=== PATIENT | male | born 1950 | race Caucasian/White ===

== ENCOUNTER 2016-06-02 16:05 | Emergency (ER) | payer MEDICARE ==
[2016-06-02 16:22] VITALS: BP 160/69
--- NOTE | 2016-06-03 17:31 | ED ---
Skin Complaint - HPI Summary HPI Summary: Patient arrives to ED with CC of left index finger bleeding from a torn hang nail which has been present for about 3 hours and is concerned that it will not stop. patient is taking a baby aspirin daily. Denies any injuries. He has been trying to apply pressure to the area, but it has not been constant pressure. He has never had anything like this before. Denies health problems. He denies feeling light headed or dizziness. denies melena, or dark stools. - History of Current Complaint Chief Complaint: EDLacSutureRecheck Stated Complaint: RT POINTER FINGER LAC Hx Obtained From: Patient Onset/Duration: Started Hours Ago Skin Exposure Onset/Duration: Hours Ago Timing: Constant Onset Severity: Moderate Current Severity: Moderate Pain Intensity: 0 Pain Scale Used: 0-10 Numeric Skin Location: Hand Aggravating Symptom(s): Nothing Alleviating Symptom(s): Nothing Associated Signs & Symptoms: Negative Related History: Trauma - Allergy/Home Medications Allergies/Adverse Reactions: Allergies Allergy/AdvReac Type Severity Reaction Status Date / Time Penicillins Allergy Unknown Unknown Verified 06/03/14 16:39 Reaction Details PMH/Surg Hx/FS Hx/Imm Hx Previously Healthy: Yes Endocrine/Hematology History: Denies: Hx Diabetes, Hx Thyroid Disease Cardiovascular History: Reports: Hx Hypertension Respiratory History: Denies: Hx Asthma, Hx Chronic Obstructive Pulmonary Disease (COPD) GI History: Denies: Hx Ulcer Infectious Disease History: No Infectious Disease History: Denies: Hx Hepatitis, Hx Human Immunodeficiency Virus (HIV), Traveled Outside the [place] in Last 30 Days - Social History Occupation: Retired Lives: With Family Alcohol Use: Weekly Alcohol Amount: 1 week Hx Substance Use: No Substance Use Type: Reports: None Hx Tobacco Use: No Smoking Status (MU): Former Smoker Do You Chew or Dip Tobacco: No Review of Systems Constitutional: Negative Cardiovascular: Negative Respiratory: Negative Genitourinary: Negative Positive: no symptoms reported, see HPI Musculoskeletal: Negative Positive: Other Neurological: Negative Psychological: Normal All Other Systems Reviewed And Are Negative: Yes Physical Exam Triage Information Reviewed: Yes Vital Signs On Initial Exam: Initial Vitals Temp Pulse Resp BP Pulse Ox 97.9 F 79 18 160/69 100 06/02/16 16:19 06/02/16 16:19 06/02/16 16:19 06/02/16 16:19 06/02/16 16:19 Completion Of Physical Exam Limited Due To: Dementia Appearance: Positive: Well-Appearing, Well-Nourished Skin: Positive: Warm, Skin Color Reflects Adequate Perfusion, Other - small 1cm skin avulsion superficial, bleeding for 3 hours. Head/Face: Positive: Normal Head/Face Inspection Eyes: Positive: Normal, SHERI, Conjunctiva Clear Neck: Positive: Supple, Nontender Respiratory/Lung Sounds: Positive: Clear to Auscultation, Breath Sounds Present Cardiovascular: Positive: Normal Musculoskeletal: Positive: Normal, Strength/ROM Intact Neurological: Positive: Normal Psychiatric: Positive: Normal AVPU Assessment: Alert Diagnostics - Vital Signs Vital Signs Temp Pulse Resp BP Pulse Ox 06/02/16 16:40 97.6 F 78 18 06/02/16 16:19 97.9 F 79 18 160/69 100 - Laboratory Lab Statement: Any lab studies that have been ordered have been reviewed, and results considered in the medical decision making process. Course/Dx - Course Course Of Treatment: patient was in triage room during physical exam and treatment. adhesive glue applied to finger. bleeding slowly bubbled the glue and began to slowly bleed again. Improved with glue. Patient held for 20 mintues. improved and bleeding now stopped. occlusive dressing applied with compression wrap. 20 minutes later, no bleeding was identified. patient discharged home with return precautions. patient agrees with plan. - Differential Diagnoses - Skin Complaint Differential Diagnoses: Other - laceration, avulsion, abrasion, blood clot, blood thinning - Diagnoses Provider Diagnoses: abrasion Discharge - Discharge Plan Condition: Stable Disposition: HOME Patient Education Materials: Abrasion (ED) Referrals: Ortega Finley MD [Primary Care Provider] - Additional Instructions: If bleeding persists, come back to ED. Do not take any blood thinners today or tomorrow.
== END 2016-06-02 16:40 | disposition home or self-care (01) ==
LOC: ED 16:05
DX: S60.411A Abrasion of left index finger, initial encounter (principal); X58.XXXA Exposure to other specified factors, initial encounter; Y93.9 Activity, unspecified; Y92.9 Unspecified place or not applicable; Y99.9 Unspecified external cause status; Z88.0 Allergy status to penicillin
CPT/HCPCS: 99281

== ENCOUNTER 2016-07-18 20:20 | Emergency (ER) | payer MEDICARE ==
[2016-07-18] MEDS ORDERED: NS 0.9% 1000 ML* 1,000 ML IV SCH (22:00)
[2016-07-18 22:46] LABS: Hematocrit 38 % (42-52); Hemoglobin 13.4 g/dl (14.0-18.0); Mean Corpuscular HGB Conc 35 g/dl (31-36); Mean Corpuscular Hemoglobin 30 pg (27-31); Mean Corpuscular Volume 85 fL (80-94); Mean Platelet Volume 10 um3 (7.4-10.4); Red Blood Count 4.54 10^6/ul (4.0-5.4); Red Cell Distribution Width 13 % (10.5-15); White Blood Count 6.7 10^3/ul (3.5-10.8)
[2016-07-18 23:00] LABS: BUN/Creatinine Ratio 27.4 (8-20); C Reactive Protein 1.08 mg/L (< 5.00); Calcium 9.2 mg/dL (8.6-10.3); EGFR African American 101.7 (>60); EGFR Non-African American 79.1 (>60); Globulin 2.7 g/dL (2-4); Total Bilirubin 0.5 mg/dL (0.2-1.0); Total Protein 6.7 g/dL (6.4-8.9)
--- NOTE | 2016-07-18 23:12 | ED ---
Rio Blount Anna, scribed for Ruben Montez MD on 07/18/16 at 2157 . GI/ HPI - HPI Summary HPI Summary: Patient is a 66 y/o male coming to [facility] presenting with the sudden onset of intermittent melena that began at 0700 this morning. The patient is s/p colonoscopy on 07/16/2016, where a 9 mm polyp was removed. Denies bloating, abd pain, lightheadedness. This morning was his first BM in the last two days. Over the course of the day, he had several BM. The first was long, thin, black/brown tubes. Then he had a BM of brown/black diarrhea. Next he had a black BM with tails on the feces. He had another bowl of diarrhea. He then had a normal consistency movement with brown/black color. This evening, he had a wine red BM. He ate normally today and yesterday. He is very thirsty right now. He spoke with Dr. Mayorga, who said it was expected that he would bleed following the colonoscopy, but it usually bleeds the 4th-5th day following the surgery and is expected to resolve on its own. He takes Crestor 2.5 mg 2x/week. He takes Hydrochlorothiazide and Norvasc daily. Patient medications have been reviewed this visit. - History of Current Complaint Chief Complaint: EDGIBleed Time Seen by Provider: 07/18/16 21:55 Stated Complaint: RECTAL BLEEDING Hx Obtained From: Patient Onset/Duration: Started Hours Ago, Still Present Timing: Lasting Hours Pain Intensity: 0 - /10 - Allergy/Home Medications Allergies/Adverse Reactions: Allergies Allergy/AdvReac Type Severity Reaction Status Date / Time Penicillins Allergy Unknown Unknown Verified 07/18/16 21:52 Reaction Details PMH/Surg Hx/FS Hx/Imm Hx Endocrine/Hematology History: Denies: Hx Diabetes, Hx Thyroid Disease Cardiovascular History: Reports: Hx Hypertension Respiratory History: Denies: Hx Asthma, Hx Chronic Obstructive Pulmonary Disease (COPD) GI History: Denies: Hx Ulcer Infectious Disease History: No Infectious Disease History: Denies: Hx Hepatitis, Hx Human Immunodeficiency Virus (HIV), Traveled Outside the [place] in Last 30 Days - Family History Known Family History: Positive: Other - Hx Alzheimer's in mother Negative: Cardiac Disease, Hypertension, Diabetes - Social History Alcohol Use: Weekly Alcohol Amount: 1 week Hx Substance Use: No Substance Use Type: Reports: None Hx Tobacco Use: No Smoking Status (MU): Former Smoker Review of Systems Constitutional: Other - thirsty Gastrointestinal: Other - hematochezia Positive: Diarrhea. Negative: Abdominal Pain Genitourinary: Other - melena Neurological: Other - Denies lightheadedness All Other Systems Reviewed And Are Negative: Yes Physical Exam - Summary Physical Exam Summary: Stool exam: bright red blood Triage Information Reviewed: Yes Vital Signs On Initial Exam: Initial Vitals Temp Pulse Resp BP Pulse Ox 99.0 F 98 20 178/78 100 07/18/16 20:20 07/18/16 20:20 07/18/16 20:20 07/18/16 20:20 07/18/16 20:20 Vital Signs Reviewed: Yes Appearance: Positive: Well-Appearing, No Pain Distress Skin: Positive: Warm, Skin Color Reflects Adequate Perfusion, Dry Head/Face: Positive: Normal Head/Face Inspection Eyes: Positive: EOMI, SHERI ENT: Positive: Normal ENT inspection Neck: Positive: Supple, Nontender Respiratory/Lung Sounds: Positive: Clear to Auscultation, Breath Sounds Present Cardiovascular: Positive: RRR Abdomen Description: Positive: Nontender, Soft Bowel Sounds: Positive: Present Musculoskeletal: Positive: Normal, Strength/ROM Intact Neurological: Positive: Normal, Sensory/Motor Intact, Alert, Oriented to Person Place, Time Psychiatric: Positive: Affect/Mood Appropriate Diagnostics - Vital Signs Vital Signs Temp Pulse Resp BP Pulse Ox 07/18/16 21:51 98.5 F 94 18 164/79 96 07/18/16 20:20 99.0 F 98 20 178/78 100 - Laboratory Lab Results: Lab Results 07/18/16 07/18/16 07/18/16 Range/Units 22:35 22:35 22:35 WBC 6.7 (3.5-10.8) 10^3/ul RBC 4.54 (4.0-5.4) 10^6/ul Hgb 13.4 L (14.0-18.0) g/dl Hct 38 L (42-52) % MCV 85 (80-94) fL MCH 30 (27-31) pg MCHC 35 (31-36) g/dl RDW 13 (10.5-15) % Plt Count 159 (150-450) 10^3/ul MPV 10 (7.4-10.4) um3 Neut % (Auto) 73.5 (38-83) % Lymph % (Auto) 17.3 L (25-47) % Toole % (Auto) 5.2 (1-9) % Eos % (Auto) 3.4 (0-6) % Baso % (Auto) 0.6 (0-2) % Absolute Neuts (auto) 5.0 (1.5-7.7) 10^3/ul Absolute Lymphs (auto) 1.2 (1.0-4.8) 10^3/ul Absolute Monos (auto) 0.4 (0-0.8) 10^3/ul Absolute Eos (auto) 0.2 (0-0.6) 10^3/ul Absolute Basos (auto) 0 (0-0.2) 10^3/ul Absolute Nucleated RBC 0 10^3/ul Nucleated RBC % 0 INR (Anticoag Therapy) 0.94 (0.89-1.11) APTT 30.8 (26.0-36.3) seconds Sodium 136 (133-145) mmol/L Potassium 3.0 L (3.5-5.0) mmol/L Chloride 101 (101-111) mmol/L Carbon Dioxide 27 (22-32) mmol/L Anion Gap 8 (2-11) mmol/L BUN 26 H (6-24) mg/dL Creatinine 0.95 (0.67-1.17) mg/dL Est GFR ( Amer) 101.7 (>60) Est GFR (Non-Af Amer) 79.1 (>60) BUN/Creatinine Ratio 27.4 H (8-20) Glucose 184 H (70-100) mg/dL Calcium 9.2 (8.6-10.3) mg/dL Total Bilirubin 0.50 (0.2-1.0) mg/dL AST 20 (13-39) U/L ALT 25 (7-52) U/L Alkaline Phosphatase 59 (34-104) U/L C-Reactive Protein 1.08 (< 5.00) mg/L Total Protein 6.7 (6.4-8.9) g/dL Albumin 4.0 (3.2-5.2) g/dL Globulin 2.7 (2-4) g/dL Albumin/Globulin Ratio 1.5 (1-3) Result Diagrams: 07/18/16 22:35 07/18/16 22:35 Lab Statement: Any lab studies that have been ordered have been reviewed, and results considered in the medical decision making process. - EKG 2154 Cardiac Rate: Tachycardia - 102 bpm EKG Rhythm: Sinus Tachycardia Ectopy: None EKG Interpretation: [address] elevation in V3, V6 EKG Comparison: No Significant Change - compared to EKG from 09/08/15 - Additional Comments Diagnostic Additional Comments: Stool Occult blood final: Positive GIGU Course/Dx - Course Course Of Treatment: NO CRITICAL CARE TIME Assessment/Plan: WELL IN ED. DISCUSSED RESULTS WITH PATIENT. DISCHARGE HOME STABLE. PATIENT WILL RETURN WITH ANY WORSENING OF THE BLEEDING/ABMONIMAL PAIN OR ANY CONCERNS. - Diagnoses Provider Diagnoses: GI bleed Discharge - Discharge Plan Condition: Stable Disposition: HOME Patient Education Materials: Gastrointestinal Bleeding (ED) Referrals: Ortega Finley MD [Primary Care Provider] - Additional Instructions: FOLLOW UP WITH YOUR DOCTOR. RETURN TO THE EMERGENCY DEPARTMENT FOR ANY WORSENING OF YOUR CONDITION; CONTINUED OR WORSE BLEEDING, YOU FEEL ILL, YOU FEEL LIGHT HEADED, ABDOMINAL PAIN OR QUESTIONS OR CONCERNS. The documentation as recorded by the Rio barney Anna accurately reflects the service I personally performed and the decisions made by me, Ruben Montez MD.
[2016-07-19 00:34] VITALS: BP 150/72
--- NOTE | 2016-07-20 09:37 | ED ---
Progress - Progress Note Progress Note: Pt's stool occult blood sample confirms blood in stool. Dr. Montez saw pt on and reported BRB per stool exam that day. He is s/p colonoscopy and was told to expect some bleeding. H&H as well as vitals stable at time of visit. Pt was advised to f/u w/ provider and return to ED if danger s/sx present. No further action at this time. Course/Dx - Course Course Of Treatment: NO CRITICAL CARE TIME - Diagnoses Provider Diagnoses: GI bleed
== END 2016-07-18 23:30 | disposition home or self-care (01) ==
LOC: ED 20:20
DX: K92.2 Gastrointestinal hemorrhage, unspecified (principal); Z87.891 Personal history of nicotine dependence; R19.7 Diarrhea, unspecified
CPT/HCPCS: 36415; 80053; 82270; 85025; 85610; 85730; 86140; 99283

== ENCOUNTER → 2016-07-20 20:55 | Emergency (ER) | payer MEDICARE ==
[2016-07-21 00:02] LABS: Hematocrit 31 % (42-52); Hemoglobin 10.8 g/dl (14.0-18.0); Mean Corpuscular HGB Conc 35 g/dl (31-36); Mean Corpuscular Hemoglobin 29 pg (27-31); Mean Corpuscular Volume 85 fL (80-94); Mean Platelet Volume 10 um3 (7.4-10.4); Red Blood Count 3.69 10^6/ul (4.0-5.4); Red Cell Distribution Width 13 % (10.5-15); White Blood Count 7.8 10^3/ul (3.5-10.8)
[2016-07-21 00:18] LABS: Albumin 3.9 g/dL (3.2-5.2); BUN/Creatinine Ratio 34.8 (8-20); Calcium 9.1 mg/dL (8.6-10.3); EGFR African American 109.7 (>60); EGFR Non-African American 85.3 (>60); Globulin 2.5 g/dL (2-4); Total Bilirubin 0.4 mg/dL (0.2-1.0); Total Protein 6.4 g/dL (6.4-8.9)
[2016-07-21 00:23] LABS: Potassium 3.8 mmol/L (3.5-5.0)
[2016-07-21 02:35] VITALS: BP 166/84
--- NOTE | 2016-07-21 02:46 | ED ---
Rio Blount Anna, scribed for Dimitri Manjarrez on 07/20/16 at 2310 . GI/ HPI - HPI Summary HPI Summary: Patient is a 66 y/o male coming to [facility] presenting with the sudden onset of intermittent melena that began at 0700 on 07/18/2016. The pt is s/p colonoscopy on 07/16/2016, where a 9 mm polyp was removed. The colonoscopy was benign. Pt was seen in ED on 07/18/2016 and was recommended to f/u with his PCP. A stool sample was taken, which showed blood. He denies abd pain. He took one baby Aspirin on Friday and lifted one thing today. Today, he had one episode of black, liquid diarrhea, four hours ago. The patients surgeon told the patient to expect blood s/p colonoscopy. He has been consulting with his doctor. His Hgb was 16, then 13.4 on . His doctors both requested an Hgb level. - History of Current Complaint Chief Complaint: EDGIBleed Time Seen by Provider: 07/20/16 23:02 Stated Complaint: RECHECK-BLEEDING FROM COLONOSCOPY Hx Obtained From: Patient Onset/Duration: Started Days Ago, Still Present Timing: Lasting Days Severity: Moderate Current Severity: Moderate Pain Intensity: 0 - /10 Associated Signs and Symptoms: Positive: Blood w/Stool, Melena - Allergy/Home Medications Allergies/Adverse Reactions: Allergies Allergy/AdvReac Type Severity Reaction Status Date / Time Penicillins Allergy Unknown Unknown Verified 07/20/16 23:29 Reaction Details PMH/Surg Hx/FS Hx/Imm Hx Endocrine/Hematology History: Denies: Hx Diabetes, Hx Thyroid Disease Cardiovascular History: Reports: Hx Hypertension Respiratory History: Denies: Hx Asthma, Hx Chronic Obstructive Pulmonary Disease (COPD) GI History: Denies: Hx Ulcer Infectious Disease History: Denies: Hx Hepatitis, Hx Human Immunodeficiency Virus (HIV), Traveled Outside the [place] in Last 30 Days - Family History Known Family History: Positive: Other - Hx Alzheimer's in mother Negative: Cardiac Disease, Hypertension, Diabetes - Social History Alcohol Use: Weekly Alcohol Amount: 1 week Hx Substance Use: No Substance Use Type: Reports: None Hx Tobacco Use: No Smoking Status (MU): Former Smoker Review of Systems Constitutional: Negative Negative: Abdominal Pain Genitourinary: Other - melena, hematochezia All Other Systems Reviewed And Are Negative: Yes Physical Exam Triage Information Reviewed: Yes Vital Signs On Initial Exam: Initial Vitals Temp Pulse Resp BP Pulse Ox 98.3 F 105 18 153/82 97 07/20/16 21:12 07/20/16 21:12 07/20/16 21:12 07/20/16 21:12 07/20/16 21:12 Vital Signs Reviewed: Yes Appearance: Positive: Well-Appearing, No Pain Distress Skin: Positive: Warm, Skin Color Reflects Adequate Perfusion Head/Face: Positive: Normal Head/Face Inspection Eyes: Positive: EOMI, SHERI ENT: Positive: Normal ENT inspection Neck: Positive: Supple, Nontender Respiratory/Lung Sounds: Positive: Clear to Auscultation, Breath Sounds Present Cardiovascular: Positive: RRR, Pulses are Symmetrical in both Upper and Lower Extremities Abdomen Description: Positive: Nontender, Soft Bowel Sounds: Positive: Present Musculoskeletal: Positive: Normal, Strength/ROM Intact Neurological: Positive: Normal, Sensory/Motor Intact, Alert, Oriented to Person Place, Time Diagnostics - Vital Signs Vital Signs Temp Pulse Resp BP Pulse Ox 07/20/16 22:00 97.7 F 116 16 166/78 98 07/20/16 21:12 98.3 F 105 18 153/82 97 - Laboratory Lab Results: Lab Results 07/20/16 07/20/16 07/20/16 Range/Units 23:40 23:40 23:40 WBC 7.8 (3.5-10.8) 10^3/ul RBC 3.69 L (4.0-5.4) 10^6/ul Hgb 10.8 L (14.0-18.0) g/dl Hct 31 L (42-52) % MCV 85 (80-94) fL MCH 29 (27-31) pg MCHC 35 (31-36) g/dl RDW 13 (10.5-15) % Plt Count 152 (150-450) 10^3/ul MPV 10 (7.4-10.4) um3 Neut % (Auto) 71.6 (38-83) % Lymph % (Auto) 21.4 L (25-47) % Sebastian % (Auto) 4.9 (1-9) % Eos % (Auto) 1.7 (0-6) % Baso % (Auto) 0.4 (0-2) % Absolute Neuts (auto) 5.6 (1.5-7.7) 10^3/ul Absolute Lymphs (auto) 1.7 (1.0-4.8) 10^3/ul Absolute Monos (auto) 0.4 (0-0.8) 10^3/ul Absolute Eos (auto) 0.1 (0-0.6) 10^3/ul Absolute Basos (auto) 0 (0-0.2) 10^3/ul Absolute Nucleated RBC 0 10^3/ul Nucleated RBC % 0.1 INR (Anticoag Therapy) 0.86 L (0.89-1.11) APTT 29.0 (26.0-36.3) seconds Sodium 135 (133-145) mmol/L Potassium 3.8 (3.5-5.0) mmol/L Chloride 102 (101-111) mmol/L Carbon Dioxide 26 (22-32) mmol/L Anion Gap 7 (2-11) mmol/L BUN 31 H (6-24) mg/dL Creatinine 0.89 (0.67-1.17) mg/dL Est GFR ( Amer) 109.7 (>60) Est GFR (Non-Af Amer) 85.3 (>60) BUN/Creatinine Ratio 34.8 H (8-20) Glucose 152 H (70-100) mg/dL Calcium 9.1 (8.6-10.3) mg/dL Total Bilirubin 0.40 (0.2-1.0) mg/dL AST 17 (13-39) U/L ALT 21 (7-52) U/L Alkaline Phosphatase 46 (34-104) U/L Total Protein 6.4 (6.4-8.9) g/dL Albumin 3.9 (3.2-5.2) g/dL Globulin 2.5 (2-4) g/dL Albumin/Globulin Ratio 1.6 (1-3) Result Diagrams: 07/20/16 23:40 07/20/16 23:40 Lab Statement: Any lab studies that have been ordered have been reviewed, and results considered in the medical decision making process. Re-Evaluation - Re-Evaluation First Eval Re-Evaluation Time: 00:44 Comment: Discussed results and plan of care with patient. Patient is agreeable with plan. GIGU Course/Dx - Course Course Of Treatment: This is a 66 y/o male presenting with black stool. Labs indicated a heme count of 10.8. He will be diagnosed with a GI bleed and anemia. He will be tranffered to [facility] to see GI. - Diagnoses Provider Diagnoses: GI bleed, Anemia Discharge - Discharge Plan Condition: Stable Disposition: TRANS HIGHER LVL OF CARE FAC Referrals: Ortega Finley MD [Primary Care Provider] - The documentation as recorded by the Rio barney Anna accurately reflects the service I personally performed and the decisions made by Loki aragon Emmanuel.
--- NOTE | 2016-07-21 02:49 | ED ---
Jl Blount Aidan, scribed for Dimitri Manjarrez on 07/21/16 at 0154 . Progress - Progress Note Progress Note: The patient came in with a complaint of black stool. His heme was 10.8 Labs indicated GI bleed and anemia. The patient will be sent to [facility] to see GI. Course/Dx - Diagnoses Provider Diagnoses: GI bleed, Anemia The documentation as recorded by the Jl barney Aidan accurately reflects the service I personally performed and the decisions made by Loki aragon Emmanuel.
== END | disposition short-term general hospital (02) ==
LOC: ED 20:55
DX: K92.2 Gastrointestinal hemorrhage, unspecified (principal); D64.9 Anemia, unspecified; Z88.0 Allergy status to penicillin; I10 Essential (primary) hypertension; Z87.891 Personal history of nicotine dependence
CPT/HCPCS: 36415; 80053; 85025; 85610; 85730; 99283

== ENCOUNTER 2016-10-24 00:06 | Emergency (ER) | payer MEDICARE ==
--- NOTE | 2016-10-24 01:21 | ED ---
Marcel Blount SooYoung, scribed for Patrick Fong MD on 10/24/16 at 0117 . Throat Pain/Nasal Congestion - HPI Summary HPI Summary: A 66 y/o M presents to ED with sore throat. Associated sx: L ear pain. Pt took Xertec which helped his ear, but his sore throat is still present. Denies fever. He attempted to get in to see his PCP this AM, but wasn't able to. He's scheduled to go to [place] later today. - History of Current Complaint Chief Complaint: EDThroatPain Time Seen by Provider: 10/24/16 01:12 Hx Obtained From: Patient Onset/Duration: Gradual Onset, Still Present Severity: Moderate - Allergies/Home Medications Allergies/Adverse Reactions: Allergies Allergy/AdvReac Type Severity Reaction Status Date / Time Penicillins Allergy Unknown Unknown Verified 07/20/16 23:29 Reaction Details PMH/Surg Hx/FS Hx/Imm Hx Previously Healthy: No Endocrine/Hematology History: Denies: Hx Diabetes, Hx Thyroid Disease Cardiovascular History: Reports: Hx Hypertension Respiratory History: Denies: Hx Asthma, Hx Chronic Obstructive Pulmonary Disease (COPD) GI History: Denies: Hx Ulcer - Immunization History Date of Tetanus Vaccine: unk Date of Influenza Vaccine: unk Infectious Disease History: No Infectious Disease History: Denies: Hx Hepatitis, Hx Human Immunodeficiency Virus (HIV), Traveled Outside the in Last 30 Days - Family History Known Family History: Positive: Other - Hx Alzheimer's in mother Negative: Cardiac Disease, Hypertension, Diabetes - Social History Occupation: Unemployed - OTHER Lives: With Family Alcohol Use: Weekly Alcohol Amount: 1 week Hx Substance Use: No Substance Use Type: Reports: None Hx Tobacco Use: No Smoking Status (MU): Former Smoker Review of Systems Negative: Fever Positive: Sore Throat, Ear Ache All Other Systems Reviewed And Are Negative: Yes Physical Exam Triage Information Reviewed: Yes Vital Signs On Initial Exam: Initial Vitals Temp Pulse Resp BP Pulse Ox 97.4 F 85 18 165/90 99 10/24/16 00:10 10/24/16 00:10 10/24/16 00:10 10/24/16 00:10 10/24/16 00:10 Vital Signs Reviewed: Yes Appearance: Positive: Well-Appearing, No Pain Distress Skin: Positive: Warm Head/Face: Positive: Normal Head/Face Inspection Eyes: Positive: SHERI ENT: Positive: Hearing grossly normal, Pharyngeal erythema. Negative: Tonsillar swelling, Tonsillar exudate Neck: Positive: Supple Respiratory/Lung Sounds: Positive: Clear to Auscultation, Breath Sounds Present Cardiovascular: Positive: RRR Abdomen Description: Positive: Nontender, Soft Bowel Sounds: Positive: Present Musculoskeletal: Positive: Strength/ROM Intact Neurological: Positive: Alert, Oriented to Person Place, Time Psychiatric: Positive: Affect/Mood Appropriate Diagnostics - Vital Signs Vital Signs Temp Pulse Resp BP Pulse Ox 10/24/16 00:10 97.4 F 85 18 165/90 99 - Laboratory Lab Results: Lab Results 10/24/16 Range/Units 00:33 Group A Strep Rapid Negative (Negative) Lab Statement: Any lab studies that have been ordered have been reviewed, and results considered in the medical decision making process. EENT Course/Dx - Course Course Of Treatment: Rapid strep test A is negative. - Diagnoses Provider Diagnoses: Pharyngitis Discharge - Discharge Plan Condition: Stable Disposition: HOME Patient Education Materials: Pharyngitis (ED) Referrals: Ortega Finley MD [Primary Care Provider] - Additional Instructions: Please return to the ED if you experience new or worsening symptoms. The documentation as recorded by the Marcel barney SooYoung accurately reflects the service I personally performed and the decisions made by Ajit aragon David, MD.
[2016-10-24 01:33] VITALS: BP 176/89
== END 2016-10-24 01:32 | disposition home or self-care (01) ==
LOC: ED 00:06
DX: J02.9 Acute pharyngitis, unspecified (principal); H92.09 Otalgia, unspecified ear; Z87.891 Personal history of nicotine dependence
CPT/HCPCS: 87651; 99282

== ENCOUNTER 2017-03-20 21:49 | Emergency (ER) | payer MEDICARE ==
[2017-03-20] MEDS ORDERED: Fluorescein Sodium TOPICAL* 1 MG TEST ONE (22:29)
[2017-03-20] MEDS ORDERED: Tetracaine 0.5% OPTH.SOL 4 ML* 1 DROP BTL ONE (22:29)
[2017-03-20] MEDS ORDERED: Ciprofloxacin 0.3% OPTH.SOL* 2.5 ML BTL ONE (23:29)
[2017-03-20 23:42] VITALS: BP 144/78
[2017-03-21] MEDS ORDERED: Ciprofloxacin 0.3% OPTH.SOL* 2.5 ML BTL RIGHT EYE SCH (02:00)
--- NOTE | 2017-03-22 00:41 | ED ---
Graeme Blount Angela, scribed for Gloria Payne MD on 03/20/17 at 2231 . Throat Pain/Nasal Congestion - HPI Summary HPI Summary: This pt is a 66 y/o male presenting to [facility] c/o right eye redness since 18:30 today. Pt reports he sometimes feels a foreign body sensation and some pruritic feeling. He denies any pain or visual changes. Pt states that he was sitting down at onset of redness in eye. Pt states that 12 hours ago he dropped a glass object, swept it up and threw it out. He denies any injuries to his eye from this. Pt notes his electrical manufacturing engineer, Dr. Dobbs, has told him he is prone to having blood vessels burst in his eye. He has flushed his eye 4 times today with no relief. Pt uses eyeglasses to read. PMHx includes HTN. - History of Current Complaint Chief Complaint: EDEyeProblem Time Seen by Provider: 03/20/17 22:27 Hx Obtained From: Patient Onset/Duration: Lasting Hours, Still Present Associated Signs And Symptoms: Positive: FB Sensation. Negative: Dysphagia, Drooling, Wheezing, Hoarseness, Sinus Discomfort, Nasal Discharge Cough: None - Allergies/Home Medications Allergies/Adverse Reactions: Allergies Allergy/AdvReac Type Severity Reaction Status Date / Time Penicillins Allergy Unknown Unknown Verified 03/20/17 22:11 Reaction Details PMH/Surg Hx/FS Hx/Imm Hx Endocrine/Hematology History: Denies: Hx Diabetes, Hx Thyroid Disease Cardiovascular History: Reports: Hx Hypertension Respiratory History: Denies: Hx Asthma, Hx Chronic Obstructive Pulmonary Disease (COPD) GI History: Denies: Hx Ulcer - Immunization History Date of Tetanus Vaccine: unk Date of Influenza Vaccine: unk Infectious Disease History: No Infectious Disease History: Denies: Hx Hepatitis, Hx Human Immunodeficiency Virus (HIV), Traveled Outside the [place] in Last 30 Days - Family History Known Family History: Positive: Other - Hx Alzheimer's in mother Negative: Cardiac Disease, Hypertension, Diabetes - Social History Alcohol Use: Weekly Alcohol Amount: 1 week Hx Substance Use: No Substance Use Type: Reports: None Hx Tobacco Use: No Smoking Status (MU): Former Smoker Review of Systems Negative: Fever, Chills Eyes: Other - foreign body sensation Positive: Erythema. Negative: Blurred Vision, Diplopia ENT: Negative Cardiovascular: Negative Respiratory: Negative Genitourinary: Negative Musculoskeletal: Negative Skin: Negative Neurological: Negative All Other Systems Reviewed And Are Negative: Yes Physical Exam - Summary Physical Exam Summary: VITAL SIGNS: Reviewed. GENERAL: Patient is a well-developed and nourished male who is lying comfortable in the stretcher. Patient is not in any acute respiratory distress. HEAD AND FACE: No signs of trauma. No ecchymosis, hematomas or skull depressions. No sinus tenderness. EYES: PERRLA, EOMI x 2, no nystagmus. Right eye shows conjunctival injection. No evidence of foreign body. Fluorescein test shows no corneal abrasion. Eyelids upper and lower were cleaned with Q-tips. Pt's right eye was irrigated with Jan Lens and 25 CC of normal saline. EARS: Hearing grossly intact. Ear canals and tympanic membranes are within normal limits. MOUTH: Oropharynx within normal limits. NECK: Supple, trachea is midline, no adenopathy, no JVD, no carotid bruit, no c- spine tenderness, neck with full ROM. CHEST: Symmetric, no tenderness at palpation LUNGS: Clear to auscultation bilaterally. No wheezing or crackles. CVS: Regular rate and rhythm, S1 and S2 present, no murmurs or gallops appreciated. ABDOMEN: Soft, non-tender. No signs of distention. No rebound no guarding, and no masses palpated. Bowel sounds are normal. EXTREMITIES: FROM in all major joints, no edema, no cyanosis or clubbing. NEURO: Alert and oriented x 3. No acute neurological deficits. Speech is normal and follows commands. SKIN: Dry and warm Triage Information Reviewed: Yes Vital Signs On Initial Exam: Initial Vitals Temp Pulse Resp BP Pulse Ox 97.5 F 95 16 181/95 97 03/20/17 22:05 03/20/17 22:05 03/20/17 22:05 03/20/17 22:05 03/20/17 22:05 Vital Signs Reviewed: Yes Diagnostics - Vital Signs Vital Signs Temp Pulse Resp BP Pulse Ox 03/20/17 22:05 97.5 F 95 16 181/95 97 - Laboratory Lab Statement: Any lab studies that have been ordered have been reviewed, and results considered in the medical decision making process. Re-Evaluation - Re-Evaluation First Eval Re-Evaluation Time: 23:22 Comment: Pt is feeling better. His symptoms have improved. EENT Course/Dx - Course Course Of Treatment: Pt is a 66 y/o male presenting to [facility] c/o right eye redness since 18:30 today. Pt reports he sometimes feels a foreign body sensation and some pruritic feeling. He denies any pain or visual changes. Right eye shows conjunctival injection. No evidence of foreign body. Fluorescein test shows no corneal abrasion. Pt's right eye was irrigated with Jan Lens and 25 CC of normal saline. On re-eval Pt is feeling better. His symptoms have improved. The pt will be discharged home with follow up from his opthalmologist. He will be given cipro eyedrops to use 1-2 drops every 4 hours. - Diagnoses Provider Diagnoses: possible foreign body right eye, Conjunctivitis Discharge - Discharge Plan Condition: Stable Disposition: HOME Patient Education Materials: Conjunctivitis (ED) Referrals: Ortega Finley MD [Primary Care Provider] - Additional Instructions: Use the cipro eyedrops, 1-2 eyedrops every 4 hours on right eye. Please follow up with your electrical manufacturing engineer. RETURN TO EMERGENCY DEPARTMENT FOR ANY NEW OR WORSENING SYMPTOMS. The documentation as recorded by the Graeme barney Angela accurately reflects the service I personally performed and the decisions made by me, Gloria Payne MD.
== END 2017-03-20 23:38 | disposition home or self-care (01) ==
LOC: ED 21:49
DX: H10.9 Unspecified conjunctivitis (principal); Z87.891 Personal history of nicotine dependence
CPT/HCPCS: 99282; A9270-GY

== ENCOUNTER 2017-03-21 21:20 | Emergency (ER) | payer MEDICARE ==
--- NOTE | 2017-03-21 22:10 | ED ---
Arianna Blount Abhishek, scribed for Gloria Payne MD on 03/21/17 at 2158 . Skin Complaint - HPI Summary HPI Summary: This patient is a 66 year old M presenting to [facility] with a chief complaint of redness of the face since yesterday. Pt states that the he arrived at the [facility] yesterday with c/o of right eye irritation from foreign body. He received Ciprofloxacin in the [facility]. Today, the pt entered the [facility] for an evaluation of face in case of cellulitis. The pt denies pain upon palpation of the face. The symptoms are aggravated by nothing and the symptoms are alleviated by nothing. Pt also denies eye pain. - History of Current Complaint Chief Complaint: EDGeneral Time Seen by Provider: 03/21/17 21:43 Stated Complaint: EYE REDNESS/ POSS CELLUITIS Hx Obtained From: Patient Onset/Duration: Started Days Ago - since yesterday Skin Exposure Onset/Duration: Days Ago - yesterday Timing: Constant Pain Intensity: 0 Pain Scale Used: 0-10 Numeric Skin Location: Face Character: Redness Aggravating Symptom(s): Nothing Alleviating Symptom(s): Nothing - Allergy/Home Medications Allergies/Adverse Reactions: Allergies Allergy/AdvReac Type Severity Reaction Status Date / Time Penicillins Allergy Unknown Unknown Verified 03/20/17 22:11 Reaction Details PMH/Surg Hx/FS Hx/Imm Hx Endocrine/Hematology History: Denies: Hx Diabetes, Hx Thyroid Disease Cardiovascular History: Reports: Hx Hypertension Respiratory History: Denies: Hx Asthma, Hx Chronic Obstructive Pulmonary Disease (COPD) GI History: Denies: Hx Ulcer - Immunization History Date of Tetanus Vaccine: unk Date of Influenza Vaccine: unk Infectious Disease History: No Infectious Disease History: Denies: Hx Hepatitis, Hx Human Immunodeficiency Virus (HIV), Traveled Outside the [place] in Last 30 Days - Family History Known Family History: Positive: Other - Hx Alzheimer's in mother Negative: Cardiac Disease, Hypertension, Diabetes - Social History Alcohol Use: Weekly Alcohol Amount: 1 week Hx Substance Use: No Substance Use Type: Reports: None Hx Tobacco Use: No Smoking Status (MU): Former Smoker Review of Systems Constitutional: Negative Eyes: Other - Negative eye pain ENT: Negative Cardiovascular: Negative Respiratory: Negative Gastrointestinal: Negative Genitourinary: Negative Musculoskeletal: Other - Negative facial pain Skin: Other - Redness of the face Neurological: Negative Psychological: Normal All Other Systems Reviewed And Are Negative: Yes Physical Exam - Summary Physical Exam Summary: VITAL SIGNS: Reviewed. GENERAL: ~Patient is a well-developed and nourished (MALE) who is lying comfortable in the stretcher. Patient is not in any acute respiratory distress. HEAD AND FACE: no tenderness, no warmness, no edema, redness bilaterally of the cheeks. EYES: PERRLA, EOMI x 2, No injected conjunctiva, no nystagmus. EARS: Hearing grossly intact. Ear canals and tympanic membranes are within normal limits. MOUTH: Oropharynx within normal limits. NECK: Supple, trachea is midline, no adenopathy, no JVD, no carotid bruit, no c- spine tenderness, neck with full ROM. CHEST: Symmetric, no tenderness at palpation LUNGS: Clear to auscultation bilaterally. No wheezing or crackles. CVS: Regular rate and rhythm, S1 and S2 present, no murmurs or gallops appreciated. ABDOMEN: Soft, non-tender. No signs of distention. No rebound no guarding, and no masses palpated. Bowel sounds are normal. EXTREMITIES: FROM in all major joints, no edema, no cyanosis or clubbing. NEURO: Alert and oriented x 3. No acute neurological deficits. Speech is normal and follows commands. SKIN: Dry and warm Triage Information Reviewed: Yes Vital Signs On Initial Exam: Initial Vitals Temp Pulse Resp BP Pulse Ox 98.3 F 100 18 195/83 96 03/21/17 21:32 03/21/17 21:32 03/21/17 21:32 03/21/17 21:32 03/21/17 21:32 Vital Signs Reviewed: Yes Diagnostics - Vital Signs Vital Signs Temp Pulse Resp BP Pulse Ox 03/21/17 21:32 98.3 F 100 18 195/83 96 - Laboratory Lab Statement: Any lab studies that have been ordered have been reviewed, and results considered in the medical decision making process. Course/Dx - Course Course Of Treatment: Pt c/o of redness of the face and arrived at the [facility] for evaluation for possible cellulitis. Pt denied pain upon palpation at and below the cheeks. Further evaluation reveals there was no tenderness, warmness or edema in the area of redness. The pt will be discharged home. The dx will be rash of the face. - Diagnoses Provider Diagnoses: Rash of face Discharge - Discharge Plan Condition: Stable Disposition: HOME Prescriptions: Ciprofloxacin 0.3% OPTH.OSORIO* [Cipro 0.3% Opth*] 1 drop RIGHT EYE Q4H #1 btl Patient Education Materials: Acute Rash (ED) Referrals: Ortega Finley MD [Primary Care Provider] - (Follow up with PCP within 1 to 2 days. ) Additional Instructions: RETURN TO THE EMERGENCY DEPARTMENT FOR CHANGING OR WORSENING SYMPTOMS. The documentation as recorded by the Arianna barney Abhishek accurately reflects the service I personally performed and the decisions made by Kerry aragon Abdul, MD.
[2017-03-21 22:11] VITALS: BP 00/0
== END 2017-03-21 22:10 | disposition home or self-care (01) ==
LOC: ED 21:20
DX: R21 Rash and other nonspecific skin eruption (principal); Z87.891 Personal history of nicotine dependence; Z88.0 Allergy status to penicillin
CPT/HCPCS: 99282

== ENCOUNTER 2017-05-15 09:11 | Emergency (ER) | payer MEDICARE ==
[2017-05-15] MEDS ORDERED: NS 0.9% 1000 ML* 1,000 ML IV ONE (10:51)
[2017-05-15 11:35] LABS: ABS Basophils 0 10^3/ul (0-0.2); ABS Eosinophils 0.1 10^3/ul (0-0.6); ABS Lymphocytes 0.9 10^3/ul (1.0-4.8); ABS Monocytes 0.2 10^3/ul (0-0.8); ABS Neutrophils 4.2 10^3/ul (1.5-7.7); ABS Nucleated RBC 0 10^3/ul; Eosinophil % 1.8 % (0-6); Hematocrit 48 % (42-52); Hemoglobin 16.8 g/dl (14.0-18.0); Lymphocyte % 16.7 % (25-47); Mean Corpuscular HGB Conc 35 g/dl (31-36); Mean Corpuscular Hemoglobin 30 pg (27-31); Mean Corpuscular Volume 87 fL (80-94); Mean Platelet Volume 10 um3 (7.4-10.4); Nucleated Red Blood Cells % 0; Platelet Count 180 10^3/ul (150-450); Red Blood Count 5.58 10^6/ul (4.0-5.4); Red Cell Distribution Width 13 % (10.5-15); White Blood Count 5.4 10^3/ul (3.5-10.8)
--- NOTE | 2017-05-15 11:49 | RAD ---
INDICATION: Right upper quadrant pain COMPARISON: None TECHNIQUE: Longitudinal and transverse scans of the right upper quadrant were obtained. Doppler interrogation of the hepatic and portal venous system was performed. FINDINGS: Liver: There is mild hepatomegaly with hepatic steatosis. There are no masses . The liver measures 19 cm in cephalocaudal dimension. Vessels: There is normal hepatic and portal venous flow. Bile ducts: There is no evidence of intrahepatic or extrahepatic ductal dilatation. The common duct measures 0.3 cm. Gallbladder: The sonographic appearance of the gallbladder is normal. There is no evidence of cholelithiasis, thickening of the gallbladder wall, or pericholecystic fluid. Pancreas: The visualized pancreas appears normal. The tail is not visualized due to bowel gas. Right kidney: The right kidney is normal in size and echogenicity. There are no masses or calculi. There is no evidence of hydronephrosis. The right kidney measures 10.6 x 5.3 x 6.2 cm. IVC and aorta: The aorta and superior vena cava appear normal. Fluid: There is no ascites. Other: None. IMPRESSION: MILD HEPATOMEGALY WITH HEPATIC STEATOSIS.
[2017-05-15 11:52] LABS: INR 0.93 (0.77-1.02)
[2017-05-15 11:53] LABS: Urine Appearance Clear; Urine Blood Negative (Negative); Urine Color Yellow; Urine Ketones Negative (Negative); Urine Protein Negative (Negative); Urine Specific Gravity 1.016 (1.010-1.030); Urine Urobilinogen Negative (Negative)
--- NOTE | 2017-05-15 11:56 | RAD ---
Indication: Chest pain. Single frontal view of the chest performed at 1100 hours was reviewed. No prior study is available for comparison. No mediastinal shift is noted. Heart is of normal size and configuration. Lung whitten appear clear. IMPRESSION: NO ACTIVE CARDIOPULMONARY DISEASE IS NOTED.
[2017-05-15 13:41] VITALS: BP 160/81
--- NOTE | 2017-05-16 00:28 | ED ---
Jason Blount Stephanie, scribed for Christa Mustafa MD on 05/15/17 at 1048 . Abdominal Pain/Male - HPI Summary HPI Summary: The pt is a 66 y/o M presenting to the ED with c/o RUQ pain that began at 04:00 today. The pt reports taking Gas-X (due to nausea) at 21:00 yesterday before going to bed. The RUQ pain woke him up overnight. BP 163/88 at 10:40 today. The pt denies current pain, calf pain, fever, cough and SOB. The pt denies cardiac hx. The pt states he had a benign polyp removed. He states he introduced orange juice into his diet this past week. The pt rates his abd pain as a 2 in severity. - History of Current Complaint Chief Complaint: EDChestWallPain Stated Complaint: CHEST PAIN Time Seen by Provider: 05/15/17 09:30 Hx Obtained From: Patient Onset/Duration: Sudden Onset, Lasting Hours, Resolved Timing: Constant Severity Currently: None Pain Intensity: 0 Pain Scale Used: 0-10 Numeric Location: Discrete At: RUQ Radiates: No Aggravating Factor(s): Nothing Alleviating Factor(s): Nothing Associated Signs And Symptoms: Positive: Nausea, Other - Negative: SOB, calf pain,. Negative: Fever, Cough, Chest Pain - Allergies/Home Medications Allergies/Adverse Reactions: Allergies Allergy/AdvReac Type Severity Reaction Status Date / Time Penicillins Allergy Unknown Verified 05/15/17 09:21 Reaction Details Home Medications: Home Medications Aspirin EC Low Dose* [Ecotrin EC Low Dose 81 MG*] 81 mg PO EVERY OTHER DAY 05/15 [History Confirmed 05/15/17] Rosuvastatin (NF) [Crestor (NF)] 2.5 mg PO .MONTHURS 05/15/17 [History Confirmed 05/15/17] Simethicone TAB* [Mylicon TAB*] 80 mg PO AC PRN 05/15/17 [History Confirmed 04/03] PMH/Surg Hx/FS Hx/Imm Hx Endocrine/Hematology History: Denies: Hx Diabetes, Hx Thyroid Disease Cardiovascular History: Reports: Hx Hypertension Respiratory History: Denies: Hx Asthma, Hx Chronic Obstructive Pulmonary Disease (COPD) GI History: Denies: Hx Ulcer - Surgical History Surgery Procedure, Year, and Place: benign polyp removed - Immunization History Date of Tetanus Vaccine: unk Date of Influenza Vaccine: unk Immunizations Up to Date: Yes Infectious Disease History: No Infectious Disease History: Denies: Hx Hepatitis, Hx Human Immunodeficiency Virus (HIV), Traveled Outside the [place] in Last 30 Days - Family History Known Family History: Positive: Cardiac Disease, Other - Hx Alzheimer's in mother Negative: Hypertension, Diabetes - Social History Occupation: Works From/At Home Lives: With Family Alcohol Use: Weekly Alcohol Amount: 1 week Hx Substance Use: No Substance Use Type: Reports: None Hx Tobacco Use: No Smoking Status (MU): Former Smoker Review of Systems Negative: Fever Negative: Shortness Of Breath, Cough Positive: Abdominal Pain - RUQ pain Positive: Other - Negative: calf pain All Other Systems Reviewed And Are Negative: Yes Physical Exam - Summary Physical Exam Summary: Appearance: Ill-appearing, moderate pain distress, Well-nourished Skin: Warm, color reflects adequate perfusion Head: Normal Head/Face inspection Eyes: Conjunctiva clear ENT: Normal inspection Neck: Supple, no nodes, no JVD. Respiratory: Lungs clear, Normal breath sounds, no respiratory distress Cardio: RRR, No murmur, pulses normal, brisk capillary refill Abdomen: tenderness in RUQ, negative Milligan's sign Bowel sounds: present Musculoskeletal: Strength Intact/ ROM intact. No calf tenderness. No edema. Neuro: Alert, muscle tone normal, facial symmetry, speech normal, sensory/motor intact Psychological: Normal Triage Information Reviewed: Yes Vital Signs On Initial Exam: Initial Vitals Temp Pulse Resp BP Pulse Ox 97.2 F 88 16 154/94 98 05/15/17 09:16 05/15/17 09:16 05/15/17 09:16 05/15/17 09:16 05/15/17 09:16 Vital Signs Reviewed: Yes Diagnostics - Vital Signs Vital Signs Temp Pulse Resp BP Pulse Ox 05/15/17 09:16 97.2 F 88 16 154/94 98 - Laboratory Result Diagrams: 05/15/17 11:20 05/15/17 11:20 Lab Statement: Any lab studies that have been ordered have been reviewed, and results considered in the medical decision making process. - Radiology CXR Xray Interpretation: No Acute Changes Radiology Interpretation Completed By: Radiologist - NO ACTIVE CARDIOPULMONARY DISEASE IS NOTED. - EKG 09:22 Cardiac Rate: NL EKG Rhythm: Sinus Rhythm - [address] Segment: Non-Specific Ectopy: None EKG Interpretation: nml AVIVCT, nml QTc, and Left axis (-36) EKG Comparison: No Significant Change - 03/13/07 - Additional Comments Diagnostic Additional Comments: US gallbladder reveals: MILD HEPATOMEGALY WITH HEPATIC STEATOSIS. Abdominal Pain Fem Course/Dx - Diagnoses Provider Diagnoses: Hepatomegaly, Fatty liver Discharge - Discharge Plan Condition: Stable Disposition: HOME Patient Education Materials: Non-Alcoholic Fatty Liver Disease (ED) Referrals: Ortega Finley MD [Primary Care Provider] - 2 Days Additional Instructions: RETURN TO THE ER FOR ANY NEW OR WORSENING SYMPTOMS The documentation as recorded by the Jason barney Stephanie accurately reflects the service I personally performed and the decisions made by , Christa Mustafa MD.
== END 2017-05-15 13:48 | disposition home or self-care (01) ==
LOC: ED 09:11
DX: R07.9 Chest pain, unspecified (principal); R10.11 Right upper quadrant pain; K76.0 Fatty (change of) liver, not elsewhere classified; R11.10 Vomiting, unspecified; Z87.891 Personal history of nicotine dependence
CPT/HCPCS: 36415; 71045; 76705; 80053; 81003; 81015; 82550; 82553; 83605; 83735; 84443; 84484; 85025; 85379; 85610; 85730; 87086; 93005; 99282

== ENCOUNTER 2017-06-18 00:58 | Emergency (ER) | payer MEDICARE ==
[2017-06-18] MEDS ORDERED: LoraTADine TAB(NF) 10 MG TAB (AUTOSUB to CETIRIZINE) PO ONE (01:27)
--- NOTE | 2017-06-18 01:54 | ED ---
Julius Blount Gabriel, scribed for Gloria Payne MD on 06/18/17 at 0126 . Throat Pain/Nasal Congestion - HPI Summary HPI Summary: This patient is a 67 year old M presenting to [facility] with a chief complaint of throat pain since 06-15-17. The patient rates the pain 5/10 in severity. Patient reports dry cough. Patient denies fever. Pt is worried and would like someone to look down his throat. - History of Current Complaint Chief Complaint: EDThroatPain Time Seen by Provider: 06/18/17 01:10 Hx Obtained From: Patient Onset/Duration: Lasting Days - 3, Still Present Severity: Mild Associated Signs And Symptoms: Positive: Negative - fever - Allergies/Home Medications Allergies/Adverse Reactions: Allergies Allergy/AdvReac Type Severity Reaction Status Date / Time Penicillins Allergy Unknown Verified 06/18/17 01:04 Reaction Details PMH/Surg Hx/FS Hx/Imm Hx Endocrine/Hematology History: Denies: Hx Diabetes, Hx Thyroid Disease Cardiovascular History: Reports: Hx Hypertension Respiratory History: Denies: Hx Asthma, Hx Chronic Obstructive Pulmonary Disease (COPD) GI History: Denies: Hx Ulcer - Surgical History Surgery Procedure, Year, and Place: benign polyp removed - Immunization History Date of Tetanus Vaccine: unk Date of Influenza Vaccine: unk Infectious Disease History: No Infectious Disease History: Denies: Hx Hepatitis, Hx Human Immunodeficiency Virus (HIV), Traveled Outside the [place] in Last 30 Days - Family History Known Family History: Positive: Cardiac Disease, Other - Hx Alzheimer's in mother Negative: Hypertension, Diabetes - Social History Alcohol Use: Weekly Alcohol Amount: 1 week Hx Substance Use: No Substance Use Type: Reports: None Hx Tobacco Use: No Smoking Status (MU): Former Smoker Review of Systems Negative: Fever Positive: Sore Throat Positive: Cough All Other Systems Reviewed And Are Negative: Yes Physical Exam - Summary Physical Exam Summary: VITAL SIGNS: Reviewed. GENERAL: Patient is an elderly male who is lying comfortable in the stretcher. Patient is not in any acute respiratory distress. HEAD AND FACE: No signs of trauma. No ecchymosis, hematomas or skull depressions. No sinus tenderness. EYES: PERRLA, EOMI x 2, No injected conjunctiva, no nystagmus. EARS: Hearing grossly intact. Ear canals and tympanic membranes are within normal limits. MOUTH: Oropharynx within normal limits. NECK: Supple, trachea is midline, no adenopathy, no JVD, no carotid bruit, no c- spine tenderness, neck with full ROM. CHEST: Symmetric, no tenderness at palpation LUNGS: Clear to auscultation bilaterally. No wheezing or crackles. CVS: Regular rate and rhythm, S1 and S2 present, no murmurs or gallops appreciated. ABDOMEN: Soft, non-tender. No signs of distention. No rebound no guarding, and no masses palpated. Bowel sounds are normal. EXTREMITIES: FROM in all major joints, no edema, no cyanosis or clubbing. NEURO: Alert and oriented x 3. No acute neurological deficits. Speech is normal and follows commands. SKIN: Dry and warm Triage Information Reviewed: Yes Vital Signs On Initial Exam: Initial Vitals Temp Pulse Resp BP Pulse Ox 98.2 F 100 16 170/82 97 06/18/17 01:00 06/18/17 01:00 06/18/17 01:00 06/18/17 01:00 06/18/17 01:00 Vital Signs Reviewed: Yes Diagnostics - Vital Signs Vital Signs Temp Pulse Resp BP Pulse Ox 06/18/17 01:00 98.2 F 100 16 170/82 97 - Laboratory Lab Statement: Any lab studies that have been ordered have been reviewed, and results considered in the medical decision making process. EENT Course/Dx - Course Assessment/Plan: This patient is a 67 year old M presenting to [facility] with a chief complaint of throat pain since 06-15-17. The patient rates the pain 5/10 in severity. Patient reports dry cough. Patient denies fever. Pt is worried and would like someone to look down his throat. Pt denies prednisone in ED and prescription. Pt advised to use Saige with is OTC. Patient will be discharged and follow up from PCP. The patient is agreeable with this plan. - Diagnoses Provider Diagnoses: Seasonal allergies Discharge - Sign-Out/Discharge Documenting (check all that apply): Discharge - Discharge Plan Condition: Stable Disposition: HOME Patient Education Materials: Allergies (ED) Referrals: Ortega Finley MD [Primary Care Provider] - 2 Days Additional Instructions: RETURN TO THE EMERGENCY DEPARTMENT FOR CHANGING OR WORSENING SYMPTOMS. The documentation as recorded by the Julius barney Gabriel accurately reflects the service I personally performed and the decisions made by Kerry aragon Abdul, MD.
[2017-06-18] MEDS ORDERED: Cetirizine* 10 MG TAB PO ONE (02:00)
[2017-06-18 02:09] VITALS: BP 139/76
== END 2017-06-18 02:08 | disposition home or self-care (01) ==
LOC: ED 00:58
DX: J30.2 Other seasonal allergic rhinitis (principal); J02.9 Acute pharyngitis, unspecified; Z87.891 Personal history of nicotine dependence; R05 Cough
CPT/HCPCS: 99282; A9270-GY

== ENCOUNTER 2017-08-03 19:54 | Emergency (ER) | payer MEDICARE ==
--- NOTE | 2017-08-03 21:12 | ED ---
Laceration/Wound HPI - HPI Summary HPI Summary: Complains of laceration to distal end of left fifth digit while washing a pot tonight. Denies loss of sensation or function. Bleeding controlled. - History of Current Complaint Stated Complaint: RT FINGER LAC Time Seen by Provider: 08/03/17 21:05 Hx Obtained From: Patient Pain Intensity: 1 - Allergy/Home Medications Allergies/Adverse Reactions: Allergies Allergy/AdvReac Type Severity Reaction Status Date / Time Penicillins AdvReac Unknown Verified 08/03/17 20:13 Reaction Details PMH/Surg Hx/FS Hx/Imm Hx Endocrine/Hematology History: Denies: Hx Diabetes, Hx Thyroid Disease Cardiovascular History: Reports: Hx Hypertension Respiratory History: Denies: Hx Asthma, Hx Chronic Obstructive Pulmonary Disease (COPD) GI History: Denies: Hx Ulcer - Surgical History Surgery Procedure, Year, and Place: benign polyp removed - Immunization History Date of Tetanus Vaccine: unk Date of Influenza Vaccine: unk Infectious Disease History: No Infectious Disease History: Denies: Hx Hepatitis, Hx Human Immunodeficiency Virus (HIV), Traveled Outside the in Last 30 Days - Family History Known Family History: Positive: Cardiac Disease, Other - Hx Alzheimer's in mother Negative: Hypertension, Diabetes - Social History Alcohol Use: Weekly Alcohol Amount: 1 week Hx Substance Use: No Substance Use Type: Reports: None Hx Tobacco Use: No Smoking Status (MU): Former Smoker Review of Systems Constitutional: Negative Eyes: Negative ENT: Negative Cardiovascular: Negative Respiratory: Negative Gastrointestinal: Negative Genitourinary: Negative Musculoskeletal: Negative Skin: Negative Neurological: Negative Psychological: Normal All Other Systems Reviewed And Are Negative: Yes Physical Exam - Summary Physical Exam Summary: 1 cm laceration, very superficial to medial aspect of distal end of left fifth digit. PMS intact. No indication for suturing. Bleeding controlled. Patient has washed wound with warm water and soap. Triage Information Reviewed: Yes Vital Signs On Initial Exam: Initial Vitals Temp Pulse Resp BP Pulse Ox 97.8 F 89 16 174/88 98 08/03/17 20:10 08/03/17 20:10 08/03/17 20:10 08/03/17 20:10 08/03/17 20:10 Vital Signs Reviewed: Yes Appearance: Positive: Well-Appearing Skin: Positive: Warm Head/Face: Positive: Normal Head/Face Inspection Eyes: Positive: Normal Neck: Positive: Supple Respiratory/Lung Sounds: Positive: Clear to Auscultation Cardiovascular: Positive: Normal Abdomen Description: Positive: Nontender Musculoskeletal: Positive: Normal Neurological: Positive: Normal Psychiatric: Positive: Normal AVPU Assessment: Alert - Christianne Coma Scale Best Eye Response: 4 - Spontaneous Best Motor Response: 6 - Obeys Commands Best Verbal Response: 5 - Oriented Coma Scale Total: 15 Diagnostics - Vital Signs Vital Signs Temp Pulse Resp BP Pulse Ox 08/03/17 20:10 97.8 F 89 16 174/88 98 - Laboratory Lab Statement: Any lab studies that have been ordered have been reviewed, and results considered in the medical decision making process. Laceration Repair Course/Dx - Course Course Of Treatment: 1 cm laceration on the distal end of left fifth digit medial side, very superficial. Will be wrapped with Band-Aid. Tetanus shot given - Clinical Impression Provider Diagnoses: Laceration Discharge - Sign-Out/Discharge Documenting (check all that apply): Discharge/Admit/Transfer - Discharge Plan Condition: Stable Disposition: HOME Patient Education Materials: Laceration (ED) Referrals: Ortega Finley MD [Primary Care Provider] - Additional Instructions: Keep wound clean and dry. Follow-up with primary care for tetanus shot. Return to the ED for any new or worsening symptoms - Billing Disposition and Condition Condition: STABLE Disposition: HOME
[2017-08-03] MEDS ORDERED: Tetan/Diph/Pertus SYR(Tdap)* 0.5 ML SYR(BOOSTRIX) use SYR IM ONE ×2 (21:17→21:18)
[2017-08-03 21:24] VITALS: BP 156/79
== END 2017-08-03 21:24 | disposition home or self-care (01) ==
LOC: ED 19:54
DX: S61.217A Laceration without foreign body of left little finger without damage to nail, initial encounter (principal); W26.8XXA Contact with other sharp object(s), not elsewhere classified, initial encounter; Y93.G1 Activity, food preparation and clean up; Y92.9 Unspecified place or not applicable; Z23 Encounter for immunization; Z87.891 Personal history of nicotine dependence; Z88.0 Allergy status to penicillin
CPT/HCPCS: 90471; 90715; 99281